=== PATIENT | male | born 1995 | race African-American/Black ===

== ENCOUNTER 2018-07-10 16:00 | Inpatient (IN) | payer MEDICAID ==
[~2018-07-10] VITALS: Ht 175.3 cm; Wt 77.1 kg
[2018-07-10 16:25] VITALS: Ht 175.3 cm; Wt 77.1 kg
[2018-07-10 16:45] LABS: BASOPHIL % 1.5 % (0-2); PLATELET COUNT 237 x10^3mcL (130-400); RED CELL DISTRIBUTION WIDTH 11.9 % (11.5-14.5)
[2018-07-10 16:54] LABS: CALCIUM 8.9 mg/dL (8.5-10.1); CARBON DIOXIDE 31.8 mmol/L (21-32); CHLORIDE SERUM 103 mmol/L (98-107); CREATININE SERUM 0.9 mg/dL (0.7-1.3); GFR1 > 60 mL/min; GLUCOSE SERUM 104 mg/dL (74-106); SODIUM SERUM 139 mmol/L (136-145)
[2018-07-10 17:07] LABS: ALBUMIN 4.4 g/dL (3.4-5.0); ALKALINE PHOSPHATASE 84 U/L (46-116); ALT/SGPT 19 U/L (16-63); AST/SGOT 16 U/L (15-37); BILIRUBIN TOTAL 1.32 mg/dL (0.20-1.00); T4(THYROXINE) 8.7 ug/dL (4.7-13.3)
[2018-07-10 17:08] LABS: TOTAL PROTEIN, SERUM 8.3 g/dL (6.4-8.2)
[2018-07-10 18:48] LABS: AMPHETAMINE QUAL UR NONE DETECTED (See below)
[2018-07-11 08:05] LABS: CHOLESTEROL/HDL RATIO 3.9; MAGNESIUM 1.8 mg/dL (1.8-2.4); PHOSPHOROUS 2.9 mg/dL (2.5-4.9)
[2018-07-11 09:01] VITALS: BP 127/76
[2018-07-11 16:19] VITALS: BP 144/78
[2018-07-11 16:43] LABS: microscopic required? NO
[2018-07-11 16:53] LABS: UA SPECIFIC GRAVITY 1.015 (1.005-1.035); urine erythrocyte NEGATIVE (NEGATIVE)
[2018-07-11 21:10] VITALS: BP 132/63
[2018-07-11 22:52] VITALS: BP 132/63
== END 2018-07-12 01:42 | DRG 756 ==
LOC: ED 16:00 → MU 07-11 07:12
PROVIDERS: Emergency Medicine; Internal Medicine
DX: R45.851 Suicidal ideations (principal); R45.850 Homicidal ideations; F12.10 Cannabis abuse, uncomplicated; F10.10 Alcohol abuse, uncomplicated; Z68.25 Body mass index [BMI] 25.0-25.9, adult; E80.6 Other disorders of bilirubin metabolism
CPT/HCPCS: G0480; J7030

== ENCOUNTER 2018-07-29 13:45 | Emergency (ER) | payer MEDICAID ==
[~2018-07-29] VITALS: Ht 175.3 cm; Wt 83.0 kg
[2018-07-29 13:58] VITALS: Ht 175.3 cm; Wt 83.0 kg
[2018-07-29] MEDS ORDERED: DIPHENHYDRAMINE50 MG PO (15:00)
[2018-07-29] MEDS ORDERED: DEPAKOTE ER250 M1 (15:00)
[2018-07-29] MEDS ORDERED: OLANZAPINE20 M1 PO (15:01)
[2018-07-29] MEDS ORDERED: OLANZAPINE10 MG PO (15:01)
[2018-07-29] MEDS ORDERED: CLARITIN10 MG PO (15:01)
[2018-07-29] MEDS ORDERED: INVEGA SUSTENN117 MG (15:02)
[2018-07-29] MEDS ORDERED: QUETIAPINE FUMA50 M2 PO (15:02)
[2018-07-29] MEDS ORDERED: PROPRANOLOL HCL10 MG PO (15:02)
[2018-07-29] MEDS ORDERED: RISPERIDONE3 M2 PO (15:03)
[2018-07-29] MEDS ORDERED: TRAZODONE100 MG PO (15:03)
[2018-07-29 15:32] LABS: BASOPHIL % 0.4 % (0-2); PLATELET COUNT 212 x10^3mcL (130-400); RED CELL DISTRIBUTION WIDTH 12.8 % (11.5-14.5)
[2018-07-29 15:43] LABS: CALCIUM 9.2 mg/dL (8.5-10.1); CARBON DIOXIDE 26.5 mmol/L (21-32); CHLORIDE SERUM 106 mmol/L (98-107); GFR1 > 60 mL/min; GLUCOSE SERUM 108 mg/dL (74-106); SODIUM SERUM 142 mmol/L (136-145)
[2018-07-29 15:55] LABS: ALBUMIN 3.6 g/dL (3.4-5.0); ALKALINE PHOSPHATASE 67 U/L (46-116); ALT/SGPT 22 U/L (16-63); AST/SGOT 21 U/L (15-37); BILIRUBIN TOTAL 0.5 mg/dL (0.20-1.00); TOTAL PROTEIN, SERUM 7.2 g/dL (6.4-8.2)
[2018-07-29 16:25] LABS: AMPHETAMINE QUAL UR NONE DETECTED (See below)
[2018-07-29 17:13] VITALS: BP 149/87
== END 2018-07-29 17:13 | disposition home or self-care (01) ==
LOC: ED 13:45
PROVIDERS: Emergency Medicine
DX: T43.595A Adverse effect of other antipsychotics and neuroleptics, initial encounter (principal); Y92.89 Other specified places as the place of occurrence of the external cause; F12.10 Cannabis abuse, uncomplicated; F20.9 Schizophrenia, unspecified
CPT/HCPCS: 36415